=== PATIENT | female | born 2000 | race Caucasian/White ===

== ENCOUNTER 2022-02-04 09:52 | Emergency (ER) | payer SELFPAY | END 2022-02-04 10:24 | disposition left against medical advice (07) | LOC: JD.ED 09:52 | DX: Z53.21 Procedure and treatment not carried out due to patient leaving prior to being seen by health care provider (principal) ==

== ENCOUNTER 2022-06-05 07:41 | Emergency (ER) | payer MEDICAID, OTHER ==
[2022-06-05 08:47] LABS: CORONAVIRUS COVID-19 NAA NEGATIVE (NEGATIVE)
== END 2022-06-05 09:20 | disposition home or self-care (01) ==
LOC: JD.ED 07:41
DX: J02.9 Acute pharyngitis, unspecified (principal); F17.210 Nicotine dependence, cigarettes, uncomplicated; Z88.5 Allergy status to narcotic agent; Z79.899 Other long term (current) drug therapy; Z20.822 Contact with and (suspected) exposure to COVID-19
CPT/HCPCS: 0240U; 87651; 99283

== ENCOUNTER 2022-09-23 09:17 | Emergency (ER) | payer OTHER ==
[2022-09-23] MEDS ORDERED: HYDROmorphone 0.5 MG/0.5 ML Syringe IVPUSH ONE (09:58)
[2022-09-23] MEDS ORDERED: Ondansetron 4 MG/2 ML SDV IVPUSH ONE (09:58)
[2022-09-23] MEDS ORDERED: Ketorolac 30 MG/ML SDV IVPUSH SCH (10:00)
[2022-09-23] MEDS ORDERED: Dextrose 5%-0.9% NaCl 1,000 ML IV SCH (10:00)
[2022-09-23 10:44] LABS: CORONAVIRUS COVID-19 NAA NEGATIVE (NEGATIVE)
[2022-09-23] MEDS ORDERED: cefTRIAXone 2 GM in Sodium Chloride 0.9% 100 ML IV ONE (11:22)
== END 2022-09-23 12:23 | disposition home or self-care (01) ==
LOC: JD.ED 09:17
DX: J03.90 Acute tonsillitis, unspecified (principal); J45.909 Unspecified asthma, uncomplicated; Z72.0 Tobacco use; Z88.5 Allergy status to narcotic agent; Z20.822 Contact with and (suspected) exposure to COVID-19
CPT/HCPCS: 0241U; 36415; 80053; 85007; 85027; 86140; 87651; 96361; 96365; 96375; 99283; J0696; J1170; J1885; J2405; J7042

== ENCOUNTER 2022-12-22 19:11 | Emergency (ER) | payer OTHER, MEDICAID ==
[2022-12-22 20:26] LABS: APPEARANCE,URINE CLEAR (Clear); BILIRUBIN,URINE NEGATIVE (Negative); COLOR,URINE YELLOW (Yellow); GLUCOSE,URINE NEGATIVE (Negative); KETONES,URINE NEGATIVE (Negative); LEUKOCYTE ESTERASE,URINE NEGATIVE (Negative); NITRITE,URINE NEGATIVE (Negative); OCCULT BLOOD,URINE NEGATIVE (Negative); PROTEIN,URINE NEGATIVE (Negative)
[2022-12-22 20:47] LABS: RBC,URINE 0-5 /hpf (0-5); WBC,URINE 0-5 /hpf (0-5)
[2022-12-22 20:48] LABS: BACTERIA,URINE FEW /hpf (FEW); MUCUS,URINE MANY /hpf (FEW)
[2022-12-22] MEDS ORDERED: Ketorolac 30 MG/ML SDV IM ONE (20:55)
== END 2022-12-22 21:26 | disposition home or self-care (01) ==
LOC: JD.ED 19:11
DX: M54.50 Low back pain, unspecified (principal); J45.909 Unspecified asthma, uncomplicated; Z79.899 Other long term (current) drug therapy; Z88.5 Allergy status to narcotic agent
CPT/HCPCS: 81001; 96372; 99283; J1885

== ENCOUNTER 2022-12-25 07:36 | Emergency (ER) | payer OTHER, MEDICAID ==
[2022-12-25 09:04] LABS: APPEARANCE,URINE CLEAR (Clear); BILIRUBIN,URINE NEGATIVE (Negative); COLOR,URINE YELLOW (Yellow); GLUCOSE,URINE NEGATIVE (Negative); KETONES,URINE NEGATIVE (Negative); LEUKOCYTE ESTERASE,URINE TRACE (Negative); NITRITE,URINE NEGATIVE (Negative); OCCULT BLOOD,URINE NEGATIVE (Negative); PROTEIN,URINE NEGATIVE (Negative); UROBILINOGEN,URINE 0.2 (0.2-1.0)
[2022-12-25 10:12] LABS: BACTERIA,URINE MODERATE /hpf (FEW); RBC,URINE 0-5 /hpf (0-5); SQUAMOUS EPITHELIAL CELLS,UR 0-5 /hpf (0-5); WBC,URINE 0-5 /hpf (0-5)
[2022-12-25 10:13] LABS: MUCUS,URINE MODERATE /hpf (FEW)
[2022-12-25] MEDS ORDERED: cefTRIAXone 1 GM Vial IM ONE (12:11)
[2022-12-25] MEDS ORDERED: Lidocaine 1% 10 ML MDV INJECT ONE (12:12)
[2022-12-25] MEDS ORDERED: methylPREDNISolone Sodium Succinate 125 MG/2 ML SDV IM ONE (12:13)
== END 2022-12-25 12:50 | disposition home or self-care (01) ==
LOC: JD.ED 07:36
DX: M51.9 Unspecified thoracic, thoracolumbar and lumbosacral intervertebral disc disorder (principal); J03.90 Acute tonsillitis, unspecified; Z88.5 Allergy status to narcotic agent
CPT/HCPCS: 72100; 81001; 81025; 87086; 96372; 99283; J0696; J2930; J3490